=== PATIENT | female | born 2000 ===

== ENCOUNTER 2024-08-18 10:22 | Emergency (ER) | payer MEDICAID, SELFPAY ==
[2024-08-18 10:27] VITALS: BP 107/51; PULSE 78; RESP 18; TEMP 36.4; O2SAT 100; BMI 27.3
[2024-08-18 10:53] LABS: MANUAL DIFF FLAG NO
[2024-08-18 11:02] LABS: Basophils Percent Auto 0.4 % (0-2); Eosinophils Absolute Auto 0.1 X10*3/uL (0.0-0.4); Eosinophils Percent Auto 2.6 % (0-4); Hematocrit 37.9 % (37.0-47.0); Hemoglobin 12.5 g/dl (12.0-16.0); Imm Gran Abs Auto 0.01 X10*3/uL (0.00-0.03); Imm Gran Pct Auto 0.2 % (0.0-0.4); Lymphocytes Absolute Auto 2.6 X10*3/uL (1.2-4.9); Lymphocytes Percent Auto 52.5 % (20-40); Mean Corpuscular Hemoglobin 30.3 pg (27.0-33.0); Mean Platelet Volume 8.9 fL (9.4-12.3); Monocytes Absolute Auto 0.3 X10*3/uL (0.1-1.2); Monocytes Percent Auto 6.8 % (2-11); Neutrophils Absolute Auto 1.9 x10*3/uL (2.0-8.3); Neutrophils Percent Auto 37.5 % (45-73); Platelet Count 351 X10*3/uL (160-400); Red Blood Count 4.12 X10*6/uL (4.20-5.50); Red Cell Distribution Width 13.5 % (11.0-16.0)
[2024-08-18 11:24] LABS: Alanine Aminotransferase 12 U/L (0-31); Albumin Level 4.3 g/dL (3.5-5.0); Alkaline Phosphatase 49 U/L (39-117); Anion Gap 13 (12-20); Aspartate Amino Transferase 23 U/L (5-31); Bilirubin Total 0.7 mg/dL (0.0-1.0); Blood Urea Nitrogen 9 mg/dL (9-16); Calcium 9.1 mg/dL (8.4-10.2); Carbon Dioxide 26 mmol/L (22-29); Chloride 103 mmol/L (96-108); Creatinine Clr Calc Pharmacy 102.1; Estimated Glomerular Filt Rate > 60; Glucose Random 85 mg/dL (60-115); Potassium 4.1 mmol/L (3.3-5.1); Sodium 138 mmol/L (135-145); Total Protein 7.9 g/dL (6.5-8.0)
== END 2024-08-18 18:45 | disposition left against medical advice (07) ==
PROVIDERS: Emergency Provider Emergency Medicine Emergency Medical Services
DX: M79.602 Pain in left arm (principal); Z79.899 Other long term (current) drug therapy
CPT/HCPCS: 36415; 80053; 85025; 99281

== ENCOUNTER 2025-04-13 18:25 | Outpatient (REF) | payer MEDICAID, SELFPAY ==
--- OUTSIDE RECORDS SUMMARY | 2025-04-13 18:27 | XMS_ITS ---
Author Organization [employer] Address [address] [place] [address] [address] [place] [address] Care Team Providers Care Missile Mechanic Name Role Phone Naheed Blanchard [facility] Status:Outreach In Progress (Enrolling) Start date:04/02/2025 Enrollment reason:ADT Feed Overview CP Program ED Visit- [place] [facility] [place]. Pt with no assigned PCP. Please coordinate with CP team to establish care. Case Team Name Relationship Phone Naheed Blanchard(Responsible Staff) [phone] Continued Care and Services Coordination
--- OUTSIDE RECORDS SUMMARY | 2025-04-13 18:27 | XMS_ITS | Clinical Summary ---
Author Organization [facility] Address [address] [place] [address] Phone Care Team Providers Care Intelligence Director Name Role Phone Physician, No Pcp Primary Care Provider Unavaila ble Allergies No known active allergies Medical History Medical History Date Comments Depression Social History Tobacco Use Types Packs/Day Years Used Date Smoking Tobacco: Never Smokeless Tobacco: Never Tobacco Cessation:Counseling Given: Not Answered Alcohol Use Standard Drinks/Week Comments Never 0 (1 standard drink = 0.6 oz pur e alcohol) Comments Unknown Sex and Gender Information Value Date Recorded Sex Assigned at Not on file Legal Sex Female 12:58 PM EST Gender Identity Not on file Sexual Orientation Not on file Obstetrics History Para Term AB IAB SAB Ectopic Multiple Livin g Live Births 2 Last Filed Vital Signs Vital Sign Reading Time Taken Comments Blood Pressure 113/79 07/24/2024 2:26 PM EST Pulse 71 07/24/2024 2:26 PM EST Temperature 36.6 C (97.9 F) 07/24/2024 2:26 PM EST Respiratory Rate 18 07/24/2024 2:26 PM EST Oxygen Saturation 100% 07/24/2024 2:26 PM EST Inhaled Oxygen Concentration - - Weight 63.5 kg (140 lb) 07/24/2024 2:26 PM EST Height 154.9 cm (5' 1 ) 07/24/2024 2:26 PM EST Body Mass Index 26.45 07/24/2024 2:26 PM EST Plan of Treatment Health Maintenance Due Date Last Done Comments Gonorrhea/Chlamydia Screening 2000 HPV Vaccines (1 - 3-dose series) 2015 DTaP,Tdap,and Td Vaccines (1 - Tdap) 2019 Hepatitis B Vaccines (1 of 3 - 19+ 3-dose series) 2019 Cervical Cancer Screening: P ap Smear 2021 COVID-19 Vaccine ( - 2023-2 5 season) 2024 HIV Screening 07/24/2024 Hepatitis C Screening 07/24/2024 Social Influencers of Health Screening 07/24/2024 Depression Screening 09/16/2024 Influenza Vaccine (#1) 2025 HIB Vaccines Aged Out No longer eligi ble based on patient's age to complete this topic Hepatitis A Vaccines Aged Out No long er eligible based on patient's age to complete this topic IPV Vaccines Aged Out No longer eligi ble based on patient's age to complete this topic MMR Vaccines Aged Out No longer eligi ble based on patient's age to complete this topic Meningococcal ACWY Vaccine Aged Out N o longer eligible based on patient's age to complete this topic Meningococcal B Vaccine Aged Out No l onger eligible based on patient's age to complete this topic Pneumococcal Vaccine: Pediat rics (0 to 5 Years) and At-Risk Patients (6 to 49 Years) Aged Out No longer eligible b ased on patient's age to complete this topic RSV Immunization Patients Un edi 20 months Aged Out No longer eligible b ased on patient's age to complete this topic Varicella Vaccines Aged Out No longer eligible based on patient's age to complete this topic Insurance MEDICAID - [place] Care Teams Intelligence Director Relationship Specialty Start Date End Date Physician, No Pcp PCP - General 07/24/24
[2025-04-14 04:46] LABS: Bacterial Vaginosis PCR POSITIVE (Negative); Candida Group PCR DETECTED (Not Detect); Candida glab krusei PCR NOT DETECTED (Not Detect); Trichomonas vaginalis PCR NOT DETECTED (Not Detect)
[2025-04-14 05:07] LABS: CT PCR NOT DETECTED (Not Detect.); NG PCR NOT DETECTED (Not Detect.)
== END 2025-04-13 18:26 | disposition home or self-care (01) ==
LOC: HO.HHCLNP 18:25
PROVIDERS: Visit Provider Student in an Organized Health Care Education/Training Program
DX: Z11.3 Encounter for screening for infections with a predominantly sexual mode of transmission (principal); Z11.8 Encounter for screening for other infectious and parasitic diseases; N89.8 Other specified noninflammatory disorders of vagina
CPT/HCPCS: 81515; 87491; 87591